=== PATIENT | male | born 1990 | race Caucasian/White ===

== ENCOUNTER 2019-04-29 17:01 | Emergency (ER) | payer OTHER ==
[~2019-04-29] VITALS: Ht 182.9 cm; Wt 81.7 kg
[2019-04-29 17:22] VITALS: BP 122/75
[2019-04-29] MEDS ORDERED: AUGMENTIN 875-1 EACH PO (17:48)
== END 2019-04-29 18:01 | disposition home or self-care (01) ==
LOC: M.ERS 17:01
DX: J02.9 Acute pharyngitis, unspecified (principal); H92.01 Otalgia, right ear

== ENCOUNTER 2020-02-23 06:33 | Emergency (ER) | payer OTHER ==
[~2020-02-23] VITALS: Ht 182.9 cm; Wt 81.7 kg
[~2020-02-23 06:33] MED LIST: AUGMENTIN 875-1 EACH PO
[2020-02-23 07:09] LABS: NUCLEATED RBCS 0 /100WBC
[2020-02-23 07:13] LABS: HEMATOCRIT 43.8 % (42.0-52.0); HEMOGLOBIN 15.5 gm/dL (14.0-18.0); MCH 30.6 pg (26.0-34.0); MCHC 35.4 g/dL (28.0-37.0); MCV 86.4 fL (80.0-100.0); MPV 9.8 fl. (7.2-11.1); PLATELET COUNT* 253 thou/uL (150-400); RBC 5.07 mil/uL (4.50-6.00); RDW-CV 12.9 % (10.5-14.5); WBC 17.2 thou/uL (4.0-11.0)
[2020-02-23 07:20] LABS: CALCIUM 9.4 mg/dL (8.5-10.1); POTASSIUM 3.8 mmol/L (3.5-5.1)
[2020-02-23 07:24] LABS: ALBUMIN 5.1 g/dL (3.4-5.0); TOTAL BILIRUBIN 0.9 mg/dL (<0.1-1.0); TOTAL PROTEIN 9.5 g/dL (6.4-8.2)
[2020-02-23 07:43] LABS: URINE BILIRUBIN NEGATIVE (Negative); URINE BLOOD TRACE (Negative); URINE CLARITY CLEAR; URINE COLOR YELLOW; URINE GLUCOSE-RANDOM NEGATIVE (Negative); URINE KETONES TRACE (Negative); URINE LEUKOCYTES NEGATIVE (Negative); URINE NITRITE NEGATIVE (Negative); URINE PROTEIN TRACE (Negative); URINE SPECIFIC GRAVITY 1.025 (1.005-1.030); URINE UROBILINOGEN 0.2 E.U./dl (0.2-1.0)
[2020-02-23 08:01] LABS: AMP/METHAMP Negative (Negative); BARBITURATES Negative (Negative); BENZODIAZEPINES Negative (Negative); COCAINE Negative (Negative); METHADONE Negative (Negative); OPIATES Negative (Negative); PCP Negative (Negative); THC POSITIVE (Negative)
[2020-02-23] MEDS ORDERED: BENTYL 20 MG TA20 M1 PO (08:03)
[2020-02-23] MEDS ORDERED: ZOFRAN ODT4 MG PO (08:03)
[2020-02-23 08:34] VITALS: BP 103/65
[2020-02-23 08:56] LABS: ABSOLUTE EOSINOPHILS 0.3 thou/uL (0.0-0.7); ABSOLUTE LYMPHOCYTES 2.2 thou/uL (0.8-5.3); ABSOLUTE MONOCYTES 0.5 thou/uL (0.0-1.2); ABSOLUTE NEUTROPHILS 14.1 thou/uL (1.6-8.1); PLATELET ESTIMATE ADEQUATE
== END 2020-02-23 08:34 | disposition home or self-care (01) ==
LOC: M.ERS 06:33
PROVIDERS: Emergency Medicine; Personal Emergency Response Attendant
DX: R11.2 Nausea with vomiting, unspecified (principal); Z79.899 Other long term (current) drug therapy